=== PATIENT | male | born 1980 | race Caucasian/White ===

== ENCOUNTER 2018-03-03 10:08 | Emergency (ER) | payer OTHER, SELFPAY ==
--- NOTE | 2018-03-03 12:03 | RAD ---
HREE VIEWS LEFT FOOT: DATE: 03/03/18. HISTORY: Left foot pain. 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 There is no evidence of a fracture or dislocation. The Lisfranc joint is normally aligned. No other osseous abnormality. IMPRESSION: No acute osseous abnormality of the left foot. POS: [facility]
== END 2018-03-03 12:00 | disposition home or self-care (01) ==
LOC: ERS 10:08
DX: G57.62 Lesion of plantar nerve, left lower limb (principal); F17.210 Nicotine dependence, cigarettes, uncomplicated

== ENCOUNTER 2022-07-30 10:40 | Outpatient (CLI) | payer OTHER ==
[2022-07-30 12:03] LABS: #Basophils 0.1 10x3/uL (0.0-0.2); #Eosinphils 0.2 10x3/uL (0.0-0.5); #Monocytes 0.5 10x3/uL (0.0-1.1); #Neutrophils 4.7 10x3/uL (1.5-8.4); %Basophils 0.7 % (0.0-2.0); %Eosinophils 2.6 % (0.0-6.0); %Monocytes 6.9 % (0.0-10.0); %Neutrophils 69.4 % (40.0-75.0); Hemoglobin 16.7 g/dL (13.5-17.5); Mean Corpuscular HGB CONC 33.7 g/dL (32.0-36.0); Mean Corpuscular Hemoglobin 31.5 pg (27.0-33.0); Mean Corpuscular Volume 93.4 fl (81.2-95.1); Mean Platelet Volume 10.4 fl (7.4-10.4); Platelet Count 215 10x3/uL (150-450); RBC Distribution Width 12.4 % (11.5-14.5); White Blood Cell (WBC) Count 6.8 10x3/uL (3.5-10.5)
[2022-07-30 12:23] LABS: Anion Gap 13 mmol/L (10-20); BUN (Urea Nitrogen) 8 mg/dL (8.9-20.6); Calc. Creatinine Clearance 0 mL/min (70-130); Calcium 9.1 mg/dL (7.8-10.44); Carbon Dioxide 26 mmol/L (22-29); Chloride 103 mmol/L (98-107); Estimated GFR 91; Glucose 89 mg/dL (70-105); Potassium 4.6 mmol/L (3.5-5.1); Sodium 137 mmol/L (136-145)
== END 2022-07-30 10:41 | disposition home or self-care (01) ==
LOC: LABBT 10:40
PROVIDERS: ATTEND Surgery
DX: Z01.812 Encounter for preprocedural laboratory examination (principal); Z20.822 Contact with and (suspected) exposure to COVID-19
CPT/HCPCS: 80048; 85025; 87811

== ENCOUNTER 2022-08-04 09:45 | Day surgery (SDC) | payer OTHER, SELFPAY ==
[2022-08-03 11:41] VITALS: BMI 30.3
[2022-08-04] MEDS ORDERED: Acetaminophen 500 MG TAB ONE (11:28)
[2022-08-04] MEDS ORDERED: Ketorolac Tromethamine 30 MG/ML VIAL ONE (11:28)
[2022-08-04] MEDS ORDERED: CEFAZOLIN 2 GM VIAL ONE (11:28)
[2022-08-04] MEDS ORDERED: Sodium Chloride 0.9% 100 ML ONE (11:29)
[2022-08-04] MEDS ORDERED: Bupivacaine/Epinephrine 0.25% 30 ML VIAL ONE (12:55)
[2022-08-04] MEDS ORDERED: Bupivacaine PF 0.5% 30 ML VIAL ONE (12:55)
[2022-08-04] MEDS ORDERED: fentaNYL Citrate/PF 100 MCG/2 ML SYRINGE ONE (12:59)
[2022-08-04] MEDS ORDERED: Famotidine/PF 20 mg/2ml Vial ONE (13:05)
[2022-08-04] MEDS ORDERED: Lidocaine 1% MPF 2 ML VIAL ONE (13:08)
[2022-08-04] MEDS ORDERED: Ondansetron PF 4 MG/2 ML Vial ONE ×2 (13:08→16:48)
[2022-08-04] MEDS ORDERED: Metoclopramide HCl 10 MG/2 ML VIAL ONE (13:08)
[2022-08-04] MEDS ORDERED: Dexamethasone 20 MG/5 ML VIAL ONE (13:08)
[2022-08-04] MEDS ORDERED: PROPOFOL 200 MG/20 ML VIAL ONE (13:08)
[2022-08-04] MEDS ORDERED: ePHEDrine 50 MG/ML VIAL ONE (13:08)
[2022-08-04] MEDS ORDERED: Scopolamine 1.5 mg/72 hour Patch ONE (16:48)
== END 2022-08-04 18:10 | disposition home or self-care (01) ==
LOC: SDC 09:45
PROVIDERS: ATTEND Surgery
PROC: 0YU50JZ Supplement Right Inguinal Region with Synthetic Substitute, Open Approach (ICD-10-PCS; principal; 2022-08-04)
DX: K40.90 Unilateral inguinal hernia, without obstruction or gangrene, not specified as recurrent (principal); D17.6 Benign lipomatous neoplasm of spermatic cord; F17.210 Nicotine dependence, cigarettes, uncomplicated; Z79.899 Other long term (current) drug therapy
CPT/HCPCS: 88304; C1781; J0690; J1100; J1885; J2405; J2704; J2765; J3490; S0020; S0028